=== PATIENT | female | born 1980 | race Caucasian/White ===

== ENCOUNTER 2017-04-07 20:09 | Emergency (ER) | payer OTHER ==
[2017-04-07] MEDS ORDERED: ATIVAN IV ONE (21:03)
[2017-04-07 22:17] LABS: Basophils % (Auto) 0.3 % (0.0-1.8); Eosinophils % (Auto) 0.1 % (0.0-4.3); Hematocrit 37.7 % (30.3-42.9); Hemoglobin 12.5 gm/dl (10.1-14.3); Mean Corpuscular HGB Conc 33 % (30-34); Mean Corpuscular Hemoglobin 30 pg (28-32); Mean Corpuscular Volume 92 fl (79-97); Platelet Count 224 K/mm3 (140-440); Red Cell Distribution Width 14.9 % (13.2-15.2); White Blood Count 13.1 K/mm3 (4.5-11.0)
[2017-04-07 22:22] LABS: Alanine Aminotransferase 53 units/L (7-56); Albumin 4.3 g/dL (3.9-5); Albumin/Globulin Ratio 1.3 %; Alkaline Phosphatase 61 units/L (35-129); Anion Gap 22 mmol/L; BUN/Creatinine Ratio 18; Bilirubin,Total < 0.20 mg/dL (0.1-1.2); Blood Urea Nitrogen 7 mg/dL (7-17); Calcium 8.9 mg/dL (8.4-10.2); Carbon Dioxide 20 mmol/L (22-30); Chloride 99.4 mmol/L (98-107); Glucose 106 mg/dL (65-100); Potassium 4.2 mmol/L (3.6-5.0); Sodium 137 mmol/L (137-145); Total Protein 7.6 g/dL (6.3-8.2)
[2017-04-07 22:26] LABS: Bacteria,Urine 1+ /HPF (Negative); Bilirubin,Urine NEG (Negative); Blood,Urine LG (Negative); Ketones,Urine NEG (Negative); Leukocyte Esterase,Urine NEG (Negative); Nitrite,Urine NEG (Negative); Urobilinogen,Urine < 2.0 mg/dL (<2.0)
[2017-04-07 22:27] LABS: RBC,Urine > 182.0 /HPF (0.0-6.0)
[2017-04-07] MEDS ORDERED: NACL 0.9% 1000 ML 1,000 ML IV ONE (22:32)
--- NOTE | 2017-04-07 22:33 | Emergency Department Report ---
ED Seizure HPI - General Chief Complaint: Seizure Stated Complaint: SEIZURE Time Seen by Provider: 04/07/17 21:22 Source: patient, EMS Mode of arrival: Stretcher Limitations: No Limitations - History of Present Illness Initial Comments: 36 YO FEMALE WITH H/O SEIZURE DISORDER ON 4G OF KEPPRA A DAY. SHE USUALLY HAS SMALLER SEIZURES INVOLVING HER ARM TWITCHING BUT NOT GENERALIZED SEIZURE BUT TODAY SHE BECAME UNRESPONSIVE AND IS UNAWARE OF WHAT HAPPENED.SHE HAS H/O BRAINANEURYSM AND CLIPPING.DENIES ANY OTHER MEDICAL PROBLEM MD Complaint: seizure, feel seizure coming on, loss of consciousness, shaking -: Sudden Description of Episode: loss of consciousness -: second(s) Witnessed:: Yes Trauma: No Seizure History: known seizure disorder, compliant with medication Place: home Possible Precipitating Event: none Associated Symptoms: denies other symptoms Treatments Prior to Arrival: none - Related Data Home Medications Medication Instructions Recorded Confirmed Last Taken levETIRAcetam [Keppra TAB] 2,000 mg PO BID 04/07/17 04/07/17 Unknown Allergies Allergy/AdvReac Type Severity Reaction Status Date / Time No Known Allergies Allergy Verified 04/07/17 20:18 ED Review of Systems ROS: Stated complaint: SEIZURE Other details as noted in HPI Constitutional: denies: chills, fever Eyes: denies: eye pain, eye discharge, vision change ENT: denies: ear pain, throat pain Respiratory: denies: cough, shortness of breath, wheezing Cardiovascular: denies: chest pain, palpitations Endocrine: no symptoms reported Gastrointestinal: denies: abdominal pain, nausea, diarrhea Genitourinary: denies: urgency, dysuria, discharge Musculoskeletal: denies: back pain, joint swelling, arthralgia Skin: denies: rash, lesions Neurological: denies: headache, weakness, paresthesias Psychiatric: denies: anxiety, depression Hematological/Lymphatic: denies: easy bleeding, easy bruising ED Past Medical Hx - Past Medical History Previous Medical History?: Yes Hx Renal Disease: Yes Hx Seizures: Yes Additional medical history: brain anneurysm - Surgical History Past Surgical History?: No - Social History Smoking Status: Never Smoker Substance Use Type: None - Medications Home Medications: Home Medications Medication Instructions Recorded Confirmed Last Taken Type levETIRAcetam [Keppra TAB] 2,000 mg PO BID 04/07/17 04/07/17 Unknown History ED Physical Exam - General Limitations: No Limitations General appearance: alert, in no apparent distress - Head Head exam: Present: atraumatic, normocephalic - Eye Eye exam: Present: normal appearance, EOMI - ENT ENT exam: Present: mucous membranes moist - Neck Neck exam: Present: normal inspection, full ROM - Respiratory Respiratory exam: Present: normal lung sounds bilaterally. Absent: respiratory distress - Cardiovascular Cardiovascular Exam: Present: regular rate, normal rhythm. Absent: systolic murmur, diastolic murmur, rubs, gallop - GI/Abdominal GI/Abdominal exam: Present: soft, normal bowel sounds. Absent: distended, tenderness, guarding - Rectal Rectal exam: Present: deferred - Extremities Exam Extremities exam: Present: normal inspection, full ROM - Back Exam Back exam: Present: normal inspection, full ROM - Neurological Exam Neurological exam: Present: alert, oriented X3, CN II-XII intact - Psychiatric Psychiatric exam: Present: normal affect, normal mood - Skin Skin exam: Present: warm, dry, intact, normal color. Absent: rash ED Course Vital Signs 04/07/17 04/08/17 20:50 00:31 Temperature 98.8 F Pulse Rate 97 H Respiratory 16 16 Rate Blood Pressure 125/75 [Left] O2 Sat by Pulse 100 100 Oximetry ED Medical Decision Making - Lab Data Result diagrams: 04/07/17 21:39 04/07/17 21:39 - Radiology Data Radiology results: report reviewed (CT HEAD; MILD VENTRICULOMEGALY, NO ACUTE CVA OR HEMORRHAGE, COILED ANEURYSM-STABLE) Critical care attestation.: If time is entered above; I have spent that time in minutes in the direct care of this critically ill patient, excluding procedure time. ED Disposition Clinical Impression: Seizure Proteinuria Qualifiers: Proteinuria type: unspecified Qualified Code(s): R80.9 - Proteinuria, unspecified Hematuria Qualifiers: Glomerular morphologic changes: unspecified whether glomerular morphologic changes present Disposition: - TO HOME OR SELFCARE Is pt being admited?: No Does the pt Need Aspirin: No Condition: Stable Instructions: Acute Hematuria (ED), Recurrent Seizures Adult (ED) Additional Instructions: PLEASE FOLLOW [facility] WITH THE KIDNEY DR . CALL FOR AN APPOINTMENT. FOLLOW UP WITH YOUR NEUROLOGIST IN 2 DAYS AND FOLLOW UP WITH YOUR REGUARA DOCTOR IN 2 DAYS. RETURN OT THE ER IF YOU HAVE MORE SEIZURES, OR FOR ANY CONCERNS Referrals: EDWIN ZELAYA MD [Primary Care Provider] - 3-5 Days JORGE ABBOTT MD [Staff Physician] - 3-5 Days Time of Disposition: 03:22
[2017-04-07] MEDS ORDERED: KEPPRA 2,000 MG in NACL 0.9% 100 ML IV SCH (23:00)
--- NOTE | 2017-04-08 02:38 | Cat Scan Report ---
FINAL REPORT EXAM: CT HEAD/BRAIN WO CON HISTORY: SEIZURE,UNRESPONSIVE H/O BRAIN ANEURYSM TECHNIQUE: Routine axial imaging was obtained of the brain without IV contrast. Comparison is made to the study of 05/19/2011. FINDINGS: There is a relatively stable partially calcified mass in the right frontal lobe with serpiginous vessels which extend into the right lateral ventricle. 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 Since the previous study there has been coil embolization along the right side of the skull base, presumably for any aneurysm. There is no evidence of acute stroke or hemorrhage at this time. There is stable mild generalized ventriculomegaly. There are no extra-axial fluid collections. The visualized sinuses are clear. The mastoid air cells are well pneumatized. IMPRESSION: No evidence of acute stroke or hemorrhage. 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 Interval coil embolization of an aneurysm along the right side of the skull base since the previous study. Stable mild generalized ventriculomegaly.
[2017-04-08 03:43] VITALS: BP 129/68
== END 2017-04-08 03:44 | disposition home or self-care (01) ==
LOC: ED 20:09
DX: G40.909 Epilepsy, unspecified, not intractable, without status epilepticus (principal); R80.9 Proteinuria, unspecified; R31.9 Hematuria, unspecified; N18.9 Chronic kidney disease, unspecified
CPT/HCPCS: 36415; 70450; 80053; 81001; 82962; 85025; 96361; 96365; 99284; J1953; J7030